=== PATIENT | male | born 2000 | race African-American/Black ===

== ENCOUNTER 2024-11-27 23:53 | Emergency (ER) | payer OTHER, SELFPAY ==
--- NOTE | ~2024-11-27 | XR_ITS ---
Examination: XR chest 1V portable Clinical History: rib cage pain Comparison: None Technique: Portable AP Findings: Heart size normal. Lungs clear. No acute bony abnormality. IMPRESSION: 1. No acute cardiopulmonary findings given portable technique. Reviewed, dictated and finalized at location R.
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
[2024-11-27 23:48] VITALS: BP 172/99; PULSE 89; RESP 19; TEMP 37; O2SAT 100
[2024-11-28] VITALS: BP 172/99; PULSE 83; RESP 17; O2SAT 100
[2024-11-28 00:30] VITALS: BP 159/71; PULSE 82; RESP 19; O2SAT 100
--- OUTSIDE RECORDS SUMMARY | 2024-11-28 00:42 | XMS_ITS | Clinical Summary ---
Author Organization [facility] Address [facility] [place] [address] Care Team Providers Care Polymerization Oven Operator Name Role Phone Seema Mendosa Primary Care Provider [phone] Allergies No known active allergies Medications meloxicam (MOBIC) 15 mg tabletIndication s:Chronic pain of right knee Take 1 tablet (15 mg total) by mouth daily 30 tablet 08/18/2024 Active acetaminophen (TYLENOL) 500 mg tablet Take 1 tablet (500 mg total) by mouth every 6 (six) hours as needed for pain 30 tablet 08/27/2024 Active Active Problems Problem Noted Date Diagnosed Date Other insomnia 03/28/2024 Assessment & Plan (03/28/2024 3:53 PM SHEET FINISHER): Chronic. Not well-controlled. No improvement with melatonin. - Strongly encouraged starting an exercise routine - Be sure to keep a regular bedtime routine; going to bed and waking up at the same time every day - Avoid screens in the evening 1-2 hours before bed. Well adult exam 03/27/2024 Overview (03/28/2024): PMH: Last tdap: Need records? Last influenza: Up-to-date Last COVID: Up-to-date Last eye exam: yearly Assessment & Plan (03/28/2024 3:51 PM SHEET FINISHER): PMH: 03/28/24 Last tdap: Need records? Last influenza: Up-to-date Last COVID: Up-to-date Last eye exam: yearly History of pulmonary embolus (PE) 03/27/2024 Assessment & Plan (03/28/2024 3:48 PM SHEET FINISHER): Acute 04/21/23, provoked. Secondary to inactivity after distal fibula fracture. Completed 6 months of Eliquis and discontinued.. History of fibula fracture 11/04/2023 Assessment & Plan (03/28/2024 3:48 PM SHEET FINISHER): Healing well. Completed physical therapy, pain is minimal. Monitor. Assessment & Plan (11/04/2023 11:13 AM CDT): Completed physical therapy, pain is minimal, does have slight limp. Disability parking placard completed today Class 3 severe obesity due t o excess calories without serious comorbidity with body mass index (BMI) of 40.0 to 44.9 in adult 06/14/2023 Assessment & Plan (05/30/2024 3:24 PM CDT): Assessment & Plan (05/15/2024 9:28 AM SHEET FINISHER): BMI Follow-up includes: education provided. Assessment & Plan (03/28/2024 3:50 PM SHEET FINISHER): Chronic. Uncontrolled. Patient's insurance does not cover weight loss medications. - Strongly encouraged starting a exercise program - Referral placed to weight management for help with nutrition and possible medications Assessment & Plan (11/04/2023 10:55 AM CDT): Chronic. Uncontrolled. Weight loss medications not covered by insurance - referral provided to [facility] weight management to discuss nutrition, possible medication, learn about surgery options Assessment & Plan (06/14/2023 1:15 PM CDT): He will return to walking as able s/p fracture of distal fibula. Encouraged healthy high-protein low-carbohydrate diet Other hyperlipidemia 04/11/2023 Assessment & Plan (03/28/2024 3:49 PM SHEET FINISHER): Chronic. Stable. Recommend diet and lifestyle changes. Ways to lower cholesterol Exercise 30 minutes a day. Exercise increases good cholesterol (HDL), reduces bad cholesterol (LDL) and naturally lowers total cholesterol levels - with no negative side effects Eat good fat, eliminate bad fat. Reduce animal fats, especially from dairy and red meat, reduce fried food. Stick with extra virgin olive oil and fatty fish (salmon, trout) as your main sources of fat. Assessment & Plan (06/14/2023 1:16 PM CDT): Chronic. Mild elevation. Diet-controlled. Recheck lipid panel in 5 months at next visit Acne keloid 04/02/2023 Allergic rhinitis 04/02/2023 Assessment & Plan (06/14/2023 1:14 PM CDT): Chronic. Stable. Rarely uses [id number] Madiha or Claritin, continue as needed. Myopia 04/02/2023 Infantile autism 04/02/2023 Assessment & Plan (03/28/2024 3:49 PM SHEET FINISHER): Stable. Recommend following up with Psychiatry, may need new psychiatrist, patient given list of resources today. Patient lives with his parents, able to complete most activities of daily living including caring for self and simple cooking. He does need assistance with junior financial analyst. Assessment & Plan (11/04/2023 11:13 AM CDT): Stable. Continue to follow with psychiatry. Patient lives with his parents, able to complete most activities of daily living including caring for self and simple cooking. He does need assistance with junior financial analyst. - planning to graduate from [employer] with liberal arts degree - disability parking placard completed today Assessment & Plan (06/14/2023 1:15 PM CDT): Stable. Continue to follow with psychiatry. Patient lives with his parents, able to complete most activities of daily living including caring for self and simple cooking. He does need assistance with junior financial analyst. - planning to graduate from [employer] in July with liberal arts degree Undersocialized conduct disorder, aggressive typ e 04/02/2023 Assessment & Plan (03/28/2024 3:50 PM SHEET FINISHER): Chronic. Has been off Abilify for several months, patient self-discontinued. Mood is stable. No angry outbursts. Monitor. Assessment & Plan (06/14/2023 1:16 PM CDT): Chronic. Continue to follow with Psychiatry Dr. Watt. Continue Abilify. Resolved Problems Problem Noted Date Diagnosed Date Resolved Date Acute saddle pulmonary embolism 04/14/2023 03/27/2024 Assessment & Plan (11/04/2023 10:52 AM CDT): Acute 04/21/23, provoked. Secondary to inactivity after distal fibula fracture. Has completed 6 months of Eliquis. Discontinue Eliquis. Assessment & Plan (06/14/2023 1:21 PM CDT): Acute 04/21/23, provoked. Secondary to in activity after distal fibula fracture. Needs 3-6 months of Eliquis. Will plan for total 6 months ending early October 2023. Script sent. Muscle strain of chest wall 04/02/2023 06/11/2023 Right anterior knee pain 04/02/2023 Open fracture of phalanx or phalanges of hand 01/29/20 11 06/11/2023 Overview (04/02/2023): Referred for fractured hand - not seen in our ER Encounters Date Type Department Care Team Description 08/29/2024 Telephone [facility] Family Medicine [address] [address] Seema Mendosa PA Medical Question/Miscellaneous from Last 3 Months Immunizations Immunization Administration Dates Next Due DTaP 12/01/2003, 1,1999,06/23,1999 HPV, Quadrivalent 12/29/2013 HPV9 09/28/2018 Hep A, Ped Unspecified 10/07/2011,12/24/2010 Hep B / HiB 05/04/2000,1999,1999 HiB 12/01/2003 IPV 12/01/2003, 0,1999,05/08 Influenza, Quadrivalent, Kiara l Culture-based MDCK, Preservative Free, Antibiotic Free, Intramuscular 01/02/2020 Influenza, Quadrivalent, Spl it, Intramuscular 12/16/2015 Influenza, Quadrivalent, Spl it, Preservative Free, Intramuscular 12/06/2022,12/26/2021 Influenza, Trivalent, Cell Culture-based MDCK, Preservative Free, Antibiotic Free, Intramuscular 11/24/2023 Influenza, Trivalent, IM (MDV) 12/11/2020 Influenza, Trivalent, Preser vative Free, Intramuscular 12/29/2013,12/24/2010 Influenza, Whole 01/10/2004,02/15/2003 MMR 12/01/2003,09/01/2000 Meningococcal MCV4P (Menactra) 12/16/2015,2010 Tdap 12/24/2010 Varicella 12/24/2010,05/04/2000 Medical History Medical History Date Comments Autism spectrum Obesity Fall fell on ice, fx ankle Not bearing weight on lower extremity 04/07/[address] Lyons at this time, surgery for ORIF scheduled for 04/14/23-also wearing CAm short boot, mother states scooter has been ordered Student activity attends [employer] Pulmonary embolism DVT (deep venous thrombosis) Muscle strain of chest wall 04/02/2023 Open fracture of phalanx or phalanges of hand 01/28/2011 Formatting of this note migh t be different from the original. Referred for fractured hand - not seen in our ER Acute saddle pulmonary embolism (HCC) 04/14/2023 Right anterior knee pain 04/02/2023 Family History Medical History Relation Name Comments Autism spectrum disorder Brother 2 Asthma Father Hypertension Maternal Grandfather Hypertension Maternal Grandmother No Known Problems Mother Prostate cancer Paternal Grandfather Diabetes Paternal Grandmother Relation Name Status Comments Brother 1 Alive Brother 2 Alive Father Alive Maternal Grandfather Alive Maternal Grandmother Alive Mother Alive Paternal Grandfather Paternal Grandmother Social History Tobacco Use Types Packs/Day Years Used Date Smoking Tobacco: Never Smokeless Tobacco: Never Tobacco Cessation:Counseling Given: Not Answered [facility] Utilities Answer Date Recorded In the past 12 months has th e electric, gas, oil, or water company threatened to shut off services in your home? No 04/12/2023 Social Connection and Isolation Panel Answer Date Recorded In a typical week, how many times do you talk on the phone with family, friends, or neighbors? More than three times a week 04/12/2023 How often do you get togethe r with friends or relatives? More than three times a week 04/12/2023 How often do you attend chur ch or samaritan services? Never 04/12/2023 Do you belong to any clubs o r organizations such as adventist groups, unions, fraternal or athletic groups, or school groups? No 04/12/2023 How often do you attend meet ings of the clubs or organizations you belong to? Never 04/12/2023 Are you , , di vorced, , never , or living with a partner? Never 04/12/2023 AUDIT-C Answer Date Recorded Q1: How often do you have a drink containing alcohol? Never 08/18/2024 Q2: How many drinks containi ng alcohol do you have on a typical day when you are drinking? Patient does not drink Q3: How often do you have si x or more drinks on one occasion? Never 08/18/2024 Overall Financial Resource Strain (CARDIA) Answe r Date Recorded How hard is it for you to pa y for the very basics like food, housing, medical care, and heating? Not hard at all 04/12/2023 PHQ-2 Answer Date Recorded PHQ-2 Total Score (If total score is 3 or more points, staff should administer the PHQ-9) 6 08/18/2024 Hunger Vital Sign Answer Date Recorded Within the past 12 months, y ou worried that your food would run out before you got the money to buy more. Never true 04/12/19 24 Within the past 12 months, t he food you bought just didn't last and you didn't have money to get more. Never true 04/12/2023 PRAPARE - Transportation Answer Date Re corded In the past 12 months, has l ack of transportation kept you from medical appointments or from getting medications? No 03/16 In the past 12 months, has l ack of transportation kept you from meetings, work, or from getting things needed for daily living? No 04/12/2023 Housing Stability Vital Sign Answer Jonah e Recorded In the last 12 months, was t here a time when you were not able to pay the mortgage or rent on time? No 04/12/2023 In the last 12 months, how many places have you lived? 1 04/12/2023 In the last 12 months, was t here a time when you did not have a steady place to sleep or slept in a senior living (including now)? No 04/12/2023 PHQ-9 Answer Date Recorded PHQ-9 Total Score 24 08/18/2024 Personal Safety Answer Date Recorded Have you ever been in or are you currently in a harmful physical or emotional relationship or is someone making you feel afraid or unsafe? Denies 08/27/2024 Sex and Gender Information Value Date Recorded Sex Assigned at Not on file Legal Sex Male 3:23 PM CDT Gender Identity Not on file Sexual Orientation Not on file Obstetrics History Last Filed Vital Signs Vital Sign Reading Time Taken Comments Blood Pressure 163/83 08/27/2024 10:10 AM CDT Pulse 74 08/27/2024 10:10 AM CDT Temperature 36.3 C (97.4 F) 08/27/2024 10:10 AM CDT Respiratory Rate 14 08/27/2024 10:10 AM CDT Oxygen Saturation 98% 08/27/2024 10:10 AM CDT Inhaled Oxygen Concentration - - Weight 168 kg (370 lb 6 oz) 08/27/2024 10:10 AM CDT Height 193 cm (6' 4) 08/27/2024 10:10 AM CDT Body Mass Index 45.08 08/27/2024 10:10 AM CDT Plan of Treatment Health Maintenance Due Date Last Done Comments Hepatitis C Screening 1999 DTaP/Tdap/Td Vaccine (7 - Td or Tdap) 12/24/2020 12/24/2010, 12/01/2003, 09/01/2000, Additional history exists Influenza Vaccine (#1) 2024 , 12/06/2022, 12/26/2021, Additional history exists Regular Well Visit/Exam 18-64 03/28/2025 03/28/2024 Depression Screening 08/18/2025 08/18/2024, 08/18/2024, 05/30/2024, Additional history exists Hepatitis B Screening Completed 05/04/2000 , 1999, 1999 Varicella Vaccines Completed 12/24/2010, 05/04/2000 HPV Vaccines Completed 09/28/2018, 12/29/2013 Covid-19 Vaccine Completed 11/24/2023, , 12/27/2021, Additional history exists Pneumococcal vaccine <65 Aged Out No longer eligible based on patient's age to complete this topic Insurance [facility] Advance Directives For more information, please contact: [phone] * Full Code (Latest Code Status on File) Date Activated Date Inactivated Comments 04/11/2023 9:44 PM 04/21/2023 5:27 PM Care Teams Polymerization Oven Operator Relationship Specialty Start Date End Date Seema Mendosa PA [address] [facility] [address] [place] [address] PCP - General Family Medicine 06/14/23
--- OUTSIDE RECORDS SUMMARY | 2024-11-28 00:42 | XMS_ITS | Clinical Summary ---
Author Organization [facility] Address [address] [place] [address] Care Team Providers Care Head Still Operator Name Role Phone Unavailable Primary Care Provider Unavailabl e Source Comments [facility] [facility],non-owned Affiliates and Associated Physician Practices is amultiple site organization consisting of ambulatory clinics and hospital sitesin [place], [place], [place] and [place]. This disclosure is being madepursuant to the Care Everywhere program and may not contain all information available regarding this patient. Last updated 17.[facility] [employer] [facility] [facility] Allergies No known active allergies Medications * Be aware that medications may not be up to date on this document. Alwaysverify current medications with the patient. ARIPiprazole (ABILIFY) 1 MG/ML oral solution Take 5 mg by mouth once daily. Active Active Problems Problem Noted Date Diagnosed Date Open fracture of phalanx or phalanges of hand Overview (12/13/2014): Referred for fractured hand - not seen in our ER Family History Medical History Relation Name Comments Asthma Father Diabetes Paternal Grandfather Diabetes Paternal Grandmother Relation Name Status Comments Father Paternal Grandfather Paternal Grandmother Social History Tobacco Use Types Packs/Day Years Used Date Smoking Tobacco: Never Assessed Sex and Gender Information Value Date Recorded Sex Assigned at Not on file Legal Sex Male 12:46 PM BOILER ENGINEER Gender Identity Not on file Sexual Orientation Not on file Last Filed Vital Signs Vital Sign Reading Time Taken Comments Blood Pressure - - Pulse - - Temperature - - Respiratory Rate - - Oxygen Saturation - - Inhaled Oxygen Concentration - - Weight 93.4 kg (206 lb) 01/30/2011 3:17 PM BOILER ENGINEER Height 175.3 cm (5' 9) 01/30/2011 3:17 PM BOILER ENGINEER Body Mass Index 30.42 01/30/2011 3:17 PM BOILER ENGINEER Plan of Treatment Health Maintenance Due Date Last Done Comments HIV SCREENING 2014 HPV VACCINE (1 - Male 3-dose series) 2014 HEPATITIS C SCREENING 02/14/2017 DTAP/TDAP/TD VACCINES (1 - Tdap) 2018 HEPATITIS B VACCINE (1 of 3 - 19+ 3-dose series) 2018 DEPRESSION SCREENING 03/15/2024 COVID-19 VACCINE (1 - 2023-2 5 season) 2024 INFLUENZA VACCINE (#1) 2024 ZOSTER VACCINE (1 of 2) 2049 HIB VACCINE Aged Out No longer eligi ble based on patient's age to complete this topic MENINGOCOCCAL (Group B) VACC INE SHARED DECISION-MAKING Aged Out No longer eligibl e based on patient's age to complete this topic MENINGOCOCCAL GROUPS A/C/Y/W VACCINE Aged Out No longer eligible b ased on patient's age to complete this topic PNEUMOCOCCAL VACCINE Aged Out No long er eligible based on patient's age to complete this topic
--- OUTSIDE RECORDS SUMMARY | 2024-11-28 00:42 | XMS_ITS | Encounter Summary ---
Author Organization [facility] Address [address] [place] [address] Care Team Providers Care Media Specialist Name Role Phone Seema Mendosa Primary Care Provider [phone] Gisela Roach BOTTOM STEEP TENDER Unavailable Unavaila ble Encounter Details Date Type Department Care Team (Late st Contact Info) Description 11/03/2023 Documentation [facility] OP Physical Therapy [address] [place] [id number] Isis Strange, PT Social History Tobacco Use Types Packs/Day Years Used Date Smoking Tobacco: Never Smokeless Tobacco: Never [facility] Utilities Answer Date Recorded In the past 12 months has [employer] electric, gas, oil, or water company threatened [...] often do you attend chur ch or uatsdin services? Never 04/12/2023 Do you belong to any clubs o r organizations such as protestant groups, unions, fraternal or athletic groups, or school groups? No 04/12/2023 How often do you attend meet ings of the clubs or organizations you belong to? Never 04/12/2023 Are you , , di vorced, , never , or living with a partner? Never 04/12/2023 AUDIT-C Answer Date Recorded Q1: How often do you have a drink containing alcohol? Never 11/04/2023 Q2: How many drinks containi ng alcohol do you have on a typical day when you are drinking? Patient does not drink Q3: How often do you have si x or more drinks on one occasion? Never 11/04/2023 Overall Financial Resource Strain (CARDIA) Answe r Date Recorded How hard is it for you to pa y for the very basics like food, housing, medical care, and heating? Not hard at all 04/12/2023 PHQ-2 Answer Date Recorded PHQ-2 Total Score (If total score is 3 or more points, staff should administer the PHQ-9) 1 11/04/2023 Hunger Vital Sign Answer Date Recorded Within [...] place to sleep or slept in a fci (including now)? No 04/12/2023 Personal Safety Answer Date Recorded Have you ever been in or are you currently in a harmful physical or emotional relationship or is someone making you feel afraid or unsafe? Denies 04/11/2023 Sex and Gender Information Value Date Recorded Sex Assigned at Not on file Legal Sex Male 3:23 PM CDT Gender Identity Not on file Sexual Orientation Not on file documented as of this encounter Functional Status * AUDIT-C Score Answer Date of Assessment Author 0 11/04/2023 10:24 AM CDT Anita Richards MA * Question Answer Date of Assessment Author Q1: How often do you have a drink containing alcohol? Never 11/04/2023 10:24 AM CDT Al Manrique MA Q2: How many drinks containing alcohol do you have on a typical day when you are drinking? Patient does not drink 11/04/2023 10:24 AM CDT Anita Manrique MA Q3: How often do you have six or more drinks on one occasion? Never 11/04/2023 10:24 AM CDT Al Manrique MA documented as of this encounter Plan of Treatment Not on file documented as of this encounter Visit Diagnoses Not on filedocumented in this encounter Additional Health Concerns Infection Onset Date Last Indicated Resolved Time COVID: Suspected 11/03/2023 11/03/2023 11/03/2023 8:19 PM CDT COVID: Suspected 11/04/2023 11/04/2023 11/04/2023 12:38 PM CDT documented as of this encounter Care Teams Media Specialist Relationship Specialty Start Date End Date Seema Mendosa PA [address] [facility] [address] [place] [address] PCP - General Family Medicine 06/14/23 Gisela Roach LCSW Intake Worker 08/21/24 09/06/24 documented as of this encounter
--- OUTSIDE RECORDS SUMMARY | 2024-11-28 00:42 | XMS_ITS | Clinical Summary ---
Author Organization [facility] Address [address] [place] [id number] Care Team Providers Care Irs Agent Name Role Phone New Referring, Provider Primary Care Provider Un available Allergies No known active allergies Medications lithium 300 MG capsule Take 600 mg by mouth 2 (two) times a day. 08/30/2019 Active ARIPiprazole 15 MG tablet Take 15 mg by mouth daily. 08/21/2019 Active Family History Medical History Relation Comments No Known Problems Father No Known Problems Mother Relation Status Comments Father Alive Mother Alive Social History Tobacco Use Types Packs/Day Years Used Date Smoking Tobacco: Never Smokeless Tobacco: Never Alcohol Use Standard Drinks/Week Comments Never 0 (1 standard drink = 0.6 oz pur e alcohol) AUDIT-C Answer Date Recorded Frequency of Alcohol Consumption Never 09/08/2019 Average Number of Drinks Not on file Frequency of Binge Drinking Not on file 08/14 Sex and Gender Information Value Date Recorded Sex Assigned at Not on file Legal Sex Male 9:24 PM CDT Gender Identity Not on file Sexual Orientation Not on file Last Filed Vital Signs Vital Sign Reading Time Taken Comments Blood Pressure 164/79 09/12/2019 10:46 AM CDT Pulse 79 09/12/2019 10:46 AM CDT Temperature 36.4 C (97.6 F) 09/12/2019 6:39 AM CDT Respiratory Rate 18 09/12/2019 10:4 6 AM CDT Oxygen Saturation 98% 09/12/2019 10: 46 AM CDT Inhaled Oxygen Concentration - - Weight 183.5 kg (404 lb 9.6 oz) 020 10:21 AM CDT Height 193 cm (6' 4) 09/10/2019 9:01 AM CDT Body Mass Index 49.25 09/08/2019 10:21 AM CDT Plan of Treatment Health Maintenance Due Date Last Done Comments Annual Physical 2002 HPV Vaccines (1 - Male 3-dos e series) 2014 Hepatitis C 2017 DTaP, Tdap and Td Vaccines ( 1 - Tdap) 2018 Hepatitis B Vaccines (1 of 3 - 19+ 3-dose series) 2018 COVID-19 Vaccine (1 - 2023-2 5 season) 2024 Meningococcal B Vaccine Aged Out No l onger eligible based on patient's age to complete this topic Meningococcal Vaccine Aged Out No yovani yesenia eligible based on patient's age to complete this topic Pneumococcal Vaccine: Pediat rics (0 to 5 Years) and At-Risk Patients (6 to 49 Years) Aged Out No longer eligible b ased on patient's age to complete this topic RSV Immunizations Under 20 Months Aged Out No longer eligible based on patient's age to complete this topic Insurance Advance Directives Documents on File Type Date Recorded 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
--- OUTSIDE RECORDS SUMMARY | 2024-11-28 00:42 | XMS_ITS | Clinical Summary ---
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 Gender Identity Not on file Sexual Orientation Not on file Plan of Treatment Health Maintenance Due Date Last Done Comments Hepatitis C Virus (HCV) Screening 1999 TdaP Immunization 1999 Human Papillomavirus (HPV) Immunization (1 - Male 3-dose series) 2014 Hepatitis B Immunization (1 of 3 - 19+ 3-dose series) 2018 SARS-COV-2 Immunization ( - 2023- season) 2023 Influenza Immunization (#1) 2024 Respiratory Syncytial Virus (RSV) Immunization (Adult) (1 - 1-dose 75+ series) 2074 Meningococcal Immunization (ACWY) Aged Out No longer eligible based on patient's age to complete this topic Pneumococcal Immunization Combined Aged Out No longer eligible based on patient's age to complete this topic Rotavirus Immunization Aged Out No lo nger eligible based on patient's age to complete this topic
[2024-11-28 01:00] VITALS: BP 149/70; PULSE 82; RESP 17; O2SAT 99
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
[2024-11-28] MEDS: MORPHINE SULFATE (*CRX) 2 MG/ML INJ IV PUSH (01:30)
[2024-11-28] MEDS: KETOROLAC 15 MG/ML VIAL (*BKC) IV PUSH (02:09)
== END 2024-11-28 03:01 | disposition home or self-care (01) ==
PROVIDERS: Emergency Provider Registered Nurse
DX: S52.132A Displaced fracture of neck of left radius, initial encounter for closed fracture (principal); S52.131A Displaced fracture of neck of right radius, initial encounter for closed fracture; M25.512 Pain in left shoulder; M25.511 Pain in right shoulder; Z86.711 Personal history of pulmonary embolism; F84.0 Autistic disorder; W05.1XXA Fall from non-moving nonmotorized scooter, initial encounter
CPT/HCPCS: 29105; 70450; 71045; 72125; 73030; 73080; 73110; 96374; 96375; 99284; J1885; J2270